=== PATIENT | male | born 1975 | race Caucasian/White ===

== ENCOUNTER 2016-11-27 18:27 | Emergency (ER) | payer MEDICAID ==
[2016-11-27 18:33] VITALS: BP 172/96; PULSE 112; RESP 19; TEMP 98.3; O2SAT 98
--- NOTE | 2016-11-27 20:31 | C.PDOC ---
History Of Present Illness 41 year old male who presents to the ER with a complaint of chronic right foot pain. Patient states he had a fracture on the same foot for which he needed at [facility]; he reports seeing a rope walker who could not find any specific abnormalities. Patient note he has been using old crutches to get around due to the pain; denies recent injury, trauma, weakness, or numbness. Time Seen by Provider: 11/27/16 18:56 Chief Complaint (Nursing): Lower Extremity Problem/Injury History Per: Patient History/Exam Limitations: no limitations Onset/Duration Of Symptoms: Hrs Current Symptoms Are (Timing): Still Present Recent travel outside of the [place]: No - Ankle/Foot Currently Unable To: Bear Weight Past Medical History Reviewed: Historical Data, Nursing Documentation, Vital Signs Vital Signs: Last Vital Signs Temp 98.3 F 11/27/16 18:30 Pulse 112 H 11/27/16 18:30 Resp 19 11/27/16 18:30 BP 172/96 H 11/27/16 18:30 Pulse Ox 98 11/27/16 21:18 - Medical History PMH: Diabetes, HTN, Rheumatoid Arthritis Surgical History: No Surg Hx Family History: States: Unknown Family Hx - Social History Hx Tobacco Use: No Hx Alcohol Use: No Hx Substance Use: No - Immunization History Hx Tetanus Toxoid Vaccination: Yes Hx Influenza Vaccination: Yes Hx Pneumococcal Vaccination: Yes Review Of Systems Musculoskeletal: Positive for: Foot Pain Neurological: Negative for: Weakness, Numbness Physical Exam - Physical Exam Appears: Non-toxic, No Acute Distress Skin: Normal Color, Warm, Dry Head: Atraumatic, Normacephalic Oral Mucosa: Moist Extremity: Normal ROM (x4 ), No Swelling, No Other (Erythema, Wounds) Pulses: Left Dorsalis Pedis: Normal, Right Dorsalis Pedis: Normal Neurological/Psych: Oriented x3, Normal Speech, Normal Cognition ED Course And Treatment O2 Sat by Pulse Oximetry: 98 (Room air) Pulse Ox Interpretation: Normal - Other Rad Right foot x-ray X-Ray: Interpreted by Me, Viewed By Me Interpretation: No acute fractures or dislocations. Progress Note: Right foot x-ray ordered and was found to be negative. Patient given referral for rope walker and discharged home. Disposition - Disposition Referrals: Clint Jon DPM [Staff Provider] - Disposition: HOME/ ROUTINE Disposition Time: 21:17 Condition: STABLE Additional Instructions: Follow up with Lead Accountant within 1-2 days. Return to ED if feel worse. Prescriptions: oxyCODONE/Acetaminophen [Percocet 5/325 mg Tab] 1 tab PO QID PRN #20 tab PRN Reason: Pain Instructions: Tenosynovitis (ED) - Clinical Impression Clinical Impression: Foot pain - Scribe Statement The provider has reviewed the documentation as recorded by the Ghislaineibkoby Davila All medical record entries made by the Radha were at my direction and personally dictated by me. I have reviewed the chart and agree that the record accurately reflects my personal performance of the history, physical exam, medical decision making, and the department course for this patient. I have also personally directed, reviewed, and agree with the discharge instructions and disposition.
--- NOTE | 2016-11-28 09:16 | RAD ---
PROCEDURE: Right foot 11/27/2016. Three views right foot performed. HISTORY: Pain and swelling. COMPARISON: No prior FINDINGS: [facility] changes distal right tibia and fibula. Sideplate is attached to the distal fibula by multiple threaded screws. Two compression screws traverse the medial malleolus. No acute displaced fracture nor dislocation. The osseous structures otherwise appear grossly intact. There is hammertoe deformity 2nd digit with slight lateral subluxation of the distal phalanx Degenerative changes of the tibiotalar articulation with prominent anterior smaller posterior osteophyte formation arising from the distal tibia. Small posterior and not very tiny plantar and surface calcaneal enthesophytes are present. Mild diffuse soft tissue swelling nonspecific. Vascular calcifications are present. . Impression: No acute fractures. [facility] changes distal right tibia and fibula as described. Degenerative changes tibiotalar articulation. See above discussion for additional findings and details.
== END 2016-11-27 21:26 | disposition home or self-care (01) ==
LOC: C.ER 18:27
DX: M79.671 Pain in right foot (principal)

== ENCOUNTER 2017-06-13 12:01 | Emergency (ER) | payer MEDICAID ==
[2017-06-13 12:33] VITALS: RESP 18
--- NOTE | 2017-06-13 16:04 | C.PDOC ---
History Of Present Illness 42 y/o male presents to the ER complaining of a headache and neck pain which began after he slipped and fell today. Patient states that he hit the back of his head and became dazed for a few seconds. Patient states that he has more pain in the right side of his neck compared to the left side. Patient denies LOC , weakness, numbness, and other complaints. - HPI Time Seen by Provider: 06/13/17 15:53 Chief Complaint (Nursing): Trauma History Per: Patient History/Exam Limitations: no limitations Onset/Duration Of Symptoms: Hrs Severity: Moderate Past Medical History Reviewed: Historical Data, Nursing Documentation, Vital Signs Vital Signs: Last Vital Signs Temp 98.3 F 06/13/17 12:29 Pulse 96 H 06/13/17 12:29 Resp 18 06/13/17 12:29 BP 164/96 H 06/13/17 12:29 Pulse Ox 100 06/13/17 16:18 - Medical History PMH: Diabetes, HTN, Rheumatoid Arthritis Denies: Chronic Kidney Disease Other Surgeries: Hx of surgeries Family History: States: No Known Family Hx - Social History Hx Tobacco Use: No Hx Alcohol Use: No Hx Substance Use: No - Immunization History Hx Tetanus Toxoid Vaccination: No Hx Influenza Vaccination: Yes Hx Pneumococcal Vaccination: No Review Of Systems Except As Marked, All Systems Reviewed And Found Negative. Musculoskeletal: Positive for: Neck Pain Neurological: Positive for: Headache. Negative for: Weakness, Numbness Physical Exam - Physical Exam Appears: Non-toxic, No Acute Distress, Other (in pain) Skin: Normal Color, Warm Head: Atraumatic, Normacephalic Eye(s): bilateral: Normal Inspection Nose: Normal Oral Mucosa: Moist Neck: Decreased ROM (decreased ROM, especially to the right side), Supple Chest: Symmetrical Extremity: Normal ROM Neurological/Psych: Oriented x3, Normal Speech, Normal Motor, Normal Sensation ED Course And Treatment O2 Sat by Pulse Oximetry: 100 (RA) Pulse Ox Interpretation: Normal Medical Decision Making Medical Decision Making: Impression: Neck Pain Plan: --CT- Head --CT- Cervical Spine --Flexeril 10 mg PO --Motrin 600 mg PO --Tylenol 975 mg PO Disposition Counseled Patient/Family Regarding: Studies Performed, Diagnosis, Need For Followup, Rx Given - Disposition Referrals: [facility] [Outside] Disposition: HOME/ ROUTINE Disposition Time: 17:15 Condition: IMPROVED Prescriptions: Cyclobenzaprine [Cyclobenzaprine HCl] 10 mg PO BID #12 tab Ibuprofen [Motrin] 600 mg PO TID #15 tab Instructions: Cervical Strain (DC) Forms: [facility] (N[place]ien), General Discharge Instructions, Work Excuse - POA Present On Arrival: Falls Or Trauma - Clinical Impression Clinical Impression: Muscle strain, Whiplash - Scribe Statement The provider has reviewed the documentation as recorded by the Radha Fuller Provider Attestation: All medical record entries made by the Radha were at my direction and personally dictated by me. I have reviewed the chart and agree that the record accurately reflects my personal performance of the history, physical exam, medical decision making, and the department course for this patient. I have also personally directed, reviewed, and agree with the discharge instructions and disposition.
--- NOTE | 2017-06-13 16:45 | CT ---
PROCEDURE: CT HEAD WITHOUT CONTRAST. HISTORY: fall, head trauma COMPARISON: None available. TECHNIQUE: Axial computed tomography images were obtained through the head/brain without intravenous contrast. Radiation dose: Total exam DLP = 881.09 mGy-cm. This CT exam was performed using one or more of the following dose reduction techniques: Automated exposure control, adjustment of the mA and/or kV according to patient size, and/or use of iterative reconstruction technique. FINDINGS: HEMORRHAGE: No intracranial hemorrhage. BRAIN: No mass effect or edema. There is calcification along the left side of the anterior falx cerebrum. This may represent near calcification or a small calcified meningioma. VENTRICLES: Unremarkable. No hydrocephalus. CALVARIUM: Unremarkable. PARANASAL SINUSES: Minimal chronic left maxillary sinusitis. MASTOID AIR CELLS: Unremarkable as visualized. No inflammatory changes. OTHER FINDINGS: None. IMPRESSION: No intracranial mass, hemorrhage or evidence of acute infarct. Anterior falx calcification versus calcified meningioma. Otherwise unremarkable.
--- NOTE | 2017-06-13 16:52 | CT ---
PROCEDURE: CT Cervical Spine without contrast HISTORY: <fall> COMPARISON: None available. TECHNIQUE: Axial computed tomography images were obtained of the cervical spine without the use of intravenous contrast. Coronal and sagittal reformatted images were created and reviewed. Radiation dose: Total exam DLP = 516.76 mGy-cm. This CT exam was performed using one or more of the following dose reduction techniques: Automated exposure control, adjustment of the mA and/or kV according to patient size, and/or use of iterative reconstruction technique. FINDINGS: VERTEBRAE: The vertebral bodies are maintained in height. Normal alignment is maintained. There is straightening of the normal lordotic curvature indicating possible muscular spasm. DISCS/SPINAL CANAL/NEURAL FORAMINA: There is narrowing of the C5-6 and C6-7 intervertebral disc spaces. There are large osteophytes seen along the dorsal aspect of the C 5 vertebra and about the C6-7 intervertebral disc space. These result in central spinal stenosis. Discs heights are grossly preserved. PARASPINAL SOFT TISSUES: Unremarkable. OTHER FINDINGS: None. IMPRESSION: No fracture/ dislocation. Possible muscular spasm. Degenerative disc disease C5-6 and C6-7. Osteophytes midline lower cervical spine resulting central spinal stenosis.
[2017-06-13 17:30] VITALS: BP 149/97; PULSE 91; TEMP 98.1; O2SAT 97
== END 2017-06-13 17:31 | disposition home or self-care (01) ==
LOC: C.ER 12:01
DX: S13.4XXA Sprain of ligaments of cervical spine, initial encounter (principal); W01.0XXA Fall on same level from slipping, tripping and stumbling without subsequent striking against object, initial encounter; Y92.9 Unspecified place or not applicable

== ENCOUNTER 2017-06-25 14:56 | Emergency (ER) | payer MEDICAID ==
[2017-06-25 15:38] VITALS: BP 154/109; PULSE 96; RESP 20; TEMP 97.6; O2SAT 100
--- NOTE | 2017-06-25 15:50 | C.PDOC ---
History Of Present Illness 42 y/o M p/w R sided neck pain x 12 days. Patient had slip and fall and was here in this ED on that day and had CT cervical spine consistent with muscle spasm and no fracture. Patient states he continues to have neck pain in the same location, not improving. He states the ibuprofen does not help so he stopped taking it and Flexeril did not help either. Denies pulsatile mass, numbness, or weakness. Time Seen by Provider: 06/25/17 15:34 Chief Complaint (Nursing): Back Pain Past Medical History Vital Signs: Last Vital Signs Temp 97.6 F 06/25/17 15:15 Pulse 96 H 06/25/17 15:15 Resp 20 06/25/17 15:15 BP 154/109 H 06/25/17 15:15 Pulse Ox 100 06/25/17 15:15 - Medical History PMH: Diabetes, HTN, Hypercholesterolemia, Rheumatoid Arthritis Denies: Chronic Kidney Disease Family History: States: Unknown Family Hx - Social History Hx Tobacco Use: No Hx Alcohol Use: No Hx Substance Use: No - Immunization History Hx Tetanus Toxoid Vaccination: No Hx Influenza Vaccination: Yes Hx Pneumococcal Vaccination: No Review Of Systems Except As Marked, All Systems Reviewed And Found Negative. Constitutional: Negative for: Fever Eyes: Negative for: Vision Change Physical Exam - Physical Exam Additional Physical Exam Comments: Gen: Holding head straight Head: NC Eyes: PERRL Neck: No midline tenderness. Limited ROM due to pain. No bruit. No pulsatile mass. ED Course And Treatment O2 Sat by Pulse Oximetry: 100 Medical Decision Making Medical Decision Making: Will add Valium and advised continue ibuprofen, f/u Dr. Monterroso. Advised on risk of this medication use. Disposition - Disposition Referrals: Frieda Monterroso MD [Medical Doctor] - Disposition: HOME/ ROUTINE Disposition Time: 15:50 Condition: STABLE Prescriptions: diaZEpam [Valium] 5 mg PO Q8H #12 tab Instructions: Torticollis, Adult - Clinical Impression Clinical Impression: Neck muscle spasm
== END 2017-06-25 16:09 | disposition home or self-care (01) ==
LOC: C.ER 14:56
DX: M62.838 Other muscle spasm (principal)

== ENCOUNTER 2017-09-12 20:24 | Inpatient (IN) | payer MEDICAID ==
[2017-09-12 20:57] VITALS: RESP 20
[2017-09-12 22:12] LABS: SQUAMOUS EPITHIAL 1 /hpf (0-5); URINE BILIRUBIN NEGATIVE (NEGATIVE); URINE BLOOD NEGATIVE (NEGATIVE); URINE CLARITY Clear (Clear); URINE COLOR Straw (YELLOW); URINE GLUCOSE (UA) NORMAL (Normal); URINE LEUKOCYTE ESTERASE NEG Leu/uL (Negative); URINE PROTEIN 3+ mg/dL (NEGATIVE); URINE UROBILINOGEN NORMAL mg/dL (0.2-1.0)
[2017-09-12] MEDS ORDERED: Sodium Chloride 0.9% 1,000 ML IV ONE (22:23)
[2017-09-12 22:35] LABS: BASO # 0.1 K/uL (0.0-0.2); BASO % 0.7 % (0.0-2.0); EOS # 0.2 K/uL (0.0-0.7); EOS % 1.4 % (0.0-4.0); LYMPH # 3.2 K/uL (1.0-4.3); MEAN CORPUSCULAR HEMOGLOBIN 31.2 pg (27.0-31.0); MEAN CORPUSCULAR HGB CONC 34.6 g/dL (33.0-37.0); MEAN PLATELET VOLUME 9.8 fL (7.2-11.7); MONO # 0.7 K/uL (0.0-0.8); MONO % 5.7 % (0.0-10.0); NEUT % 68.2 % (50.0-75.0); NRBC % 0.1 % (0.0-2.0); RBC 5.45 Mil/uL (4.40-5.90); RED CELL DISTRIBUTION WIDTH 14.1 % (11.5-14.5); WHITE BLOOD COUNT 13.2 K/uL (4.8-10.8)
[2017-09-12 22:58] LABS: ALBUMIN 3.9 g/dL (3.5-5.0)
[2017-09-12] MEDS ORDERED: Iohexol 240 (50 ml) PO ONE ×2 (23:06→23:07)
[2017-09-12] MEDS ORDERED: Morphine 4 MG/ML VIAL IV ONE (23:07)
[2017-09-12] MEDS ORDERED: Lactated Ringer's 1,000 ML IV ONE (23:10)
--- NOTE | 2017-09-12 23:19 | C.PDOC ---
Time Seen by Provider: 09/12/17 23:01 Chief Complaint (Nursing): Abdominal Pain Past Medical History Vital Signs: Last Vital Signs Temp 97.8 F 09/12/17 20:54 Pulse 98 H 09/12/17 22:35 Resp 20 09/12/17 22:35 BP 101/68 09/12/17 22:35 Pulse Ox 99 09/12/17 23:48 - Medical History PMH: Diabetes, HTN, Hypercholesterolemia, Rheumatoid Arthritis Denies: Chronic Kidney Disease Family History: States: Unknown Family Hx - Social History Hx Tobacco Use: No Hx Alcohol Use: No Hx Substance Use: No - Immunization History Hx Tetanus Toxoid Vaccination: No Hx Influenza Vaccination: Yes Hx Pneumococcal Vaccination: No ED Course And Treatment - Laboratory Results Result Diagrams: 09/12/17 22:30 09/12/17 22:37 O2 Sat by Pulse Oximetry: 99 Medical Decision Making Medical Decision Making: Patient found to have acute pancreatitis. Orders: * Abd/Pelvis CT PO Contrast * Gastroenterology Consult * Ombipaque 50 ml PO x2 * IV Fluids * Zofran 4 mg IVP * Abdominal Ultrasound Dr. Rea for admission. Disposition - Disposition
[2017-09-12] MEDS ORDERED: Morphine 4 MG/ML VIAL ONE (23:29)
[2017-09-12] MEDS ORDERED: Iohexol 240 (50 ml) ONE (23:29)
--- NOTE | 2017-09-13 02:46 | US ---
EXAM: US Abdomen Complete CLINICAL HISTORY: 42 years old, male; Pain; Abdominal pain; Additional info: Abd pain TECHNIQUE: Real-time ultrasound of the abdomen (complete) with image documentation. COMPARISON: US - RIGHT UPPER QUADRANT 2015-06-05 20:51 FINDINGS: Liver: Enlarged, 20.3 cm. Fatty infiltration. No mass. No intrahepatic ductal dilatation. Gallbladder: No gallstones. No wall thickening. No pericholecystic fluid. No sonographic Pacheco's sign. Common bile duct: No dilatation. No stones. Pancreas: Obscured by overlying bowel gas. Kidneys: Increased in echogenicity. 1.6 cm right renal cyst. 0.9 cm left renal cyst. No calculi. Right extrarenal pelvis. No hydronephrosis. Spleen: No splenomegaly. Aorta: Unremarkable. No aneurysm. Inferior vena cava: Unremarkable. Free fluid: No significant free fluid. IMPRESSION: 1. Echogenic kidneys suggesting medical renal disease. Clinical correlation is needed. 2. Hepatic steatosis. 3. Incidental/non-acute findings are described above.
--- NOTE | 2017-09-13 02:55 | CT ---
EXAM: CT Abdomen and Pelvis With Intravenous Contrast CLINICAL HISTORY: 42 years old, male; Pain; Abdominal pain and other: Pancreatitis; Patient HX: 07-07-15 images sent; Additional info: Abd pain/ pancreatitis TECHNIQUE: Axial computed tomography images of the abdomen and pelvis with intravenous contrast. All CT scans at this facility use one or more dose reduction techniques, viz.: automated exposure control; ma/kV adjustment per patient size (including targeted exams where dose is matched to indication; i.e. head); or iterative reconstruction technique. Coronal and sagittal reformatted images were created and reviewed. CONTRAST: 240 mL of oral administered intravenously. COMPARISON: CT - ABD PELVIS W/O PO OR IV CONT 2015-07-07 03:56 FINDINGS: Limitations: Lack of intravenous contrast. Lung bases: No acute findings. Heart: Mild coronary artery calcifications. Mediastinum: Probable small hiatal hernia. ABDOMEN: Liver: Fatty infiltration. Punctate calcification. Gallbladder and bile ducts: No calcified stones. No ductal dilation. Pancreas: Prominent head of pancreas, 4.6 cm in anterior posterior dimension, similar to previous examination. No definite peripancreatic stranding. No ductal dilation. No discrete peripancreatic collection. Spleen: No splenomegaly. Adrenals: Subcentimeter nodule within left adrenal gland, stable. Kidneys and ureters: Probable 1.5 cm RIGHT renal cyst. No renal calculi. No hydronephrosis. Stomach and bowel: No definite mural thickening. No obstruction. PELVIS: Appendix: Normal caliber. No inflammation. Bladder: Unremarkable. Reproductive: Unremarkable as visualized. ABDOMEN and PELVIS: Intraperitoneal space: No significant fluid collection. No free air. Bones/joints: Degenerative changes of spine. No acute fracture. Soft tissues: Mild diffuse stranding within subcutaneous tissues. Vasculature: Minimal atherosclerotic disease. No aneurysm. Lymph nodes: No pathologically enlarged lymph nodes. IMPRESSION: 1. Prominent head of pancreas. Correlate with amylase/lipase levels. Suggest MRI to evaluate for underlying pathology. 2. Incidental/non-acute findings are described above.
[2017-09-13] MEDS: Sodium Chloride 0.9% 1,000 ML IV SCH ×2 (04:05→13:21)
[2017-09-13] MEDS: (Novolog) Insulin Aspart, Recombinant 100 u/ml 10 ml vial SC SCH ×3 (08:33→17:12)
--- NOTE | 2017-09-13 08:50 | CP.PCM.CON ---
<Shawn Zaldivar - Last Filed: 09/13/17 09:25> History of Present Illness - History of Present Illness History of Present Illness: PGY 4 Initial GI Consult Brooks Mcmahon is a 42M w/ hx of Diabetes, HTN, Hypercholesterolemia, Rheumatoid Arthritis who presents to the ER with complaints of abd pain. Pt states that the pain is located in the epigastric area. He notes that it started a few days ago. He denies any ETOH use or smoking. He notes recent start of chlorthalidone by his supervisor [employer] for his HTN. He notes resolution of his symptoms in the AM. He tolerated clear liquid diet and wants a more substantial diet. He recieved IV fluids upon arrival. His CT abd revealed prominent pancreatic head. he has had prior MRCP, but no dedicated pancreatic imaging. Denies any prior EGD or colonoscopy. PMhx: Diabetes, HTN, Hypercholesterolemia, Rheumatoid Arthritis PShx: Denies Social hx: denies any smokign, ETOH, or illicit drug use Family hx: reviewed; denies any GI related malignancy Endo Hx: none ROS: 12 point ROS conducted, neg other than above Past Patient History - Past Medical History & Family History Past Medical History?: Yes - Past Social History Smoking Status: Never Smoked - CARDIAC Hx Cardiac Disorders: Yes Hx Hypercholesterolemia: Yes Hx Hypertension: Yes - PULMONARY Hx Respiratory Disorders: No - NEUROLOGICAL Hx Neurological Disorder: No - HEENT Hx HEENT Problems: No - RENAL Hx Chronic Kidney Disease: No - ENDOCRINE/METABOLIC Hx Endocrine Disorders: Yes Hx Diabetes Mellitus Type 2: Yes - HEMATOLOGICAL/ONCOLOGICAL Hx Blood Disorders: No - INTEGUMENTARY Hx Dermatological Problems: No - MUSCULOSKELETAL/RHEUMATOLOGICAL Hx Musculoskeletal Disorders: Yes Hx Falls: No Hx Rheumatoid Arthritis: Yes - GASTROINTESTINAL Hx Gastrointestinal Disorders: No - GENITOURINARY/GYNECOLOGICAL Hx Genitourinary Disorders: No - PSYCHIATRIC Hx Psychophysiologic Disorder: No Hx Substance Use: No - SURGICAL HISTORY Hx Surgeries: Yes 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) Hx Orthopedic Surgery: Yes (Right ankle) - ANESTHESIA Hx Anesthesia: Yes Hx Anesthesia Reactions: No Meds Allergies/Adverse Reactions: Allergies Allergy/AdvReac Type Severity Reaction Status Date / Time No Known Allergies Allergy Verified 06/13/17 12:33 - Medications Medications: Current Medications Heparin Sodium (Porcine) (Heparin) 5,000 units SC Q12 [facility] Sodium Chloride (Sodium Chloride 0.9%) 1,000 mls @ 100 mls/hr IV .Q10H [facility] Last Admin: 09/13/17 04:05 Dose: 100 mls/hr Insulin Aspart (Novolog) 0 unit SC ACHS [facility] PRN Reason: Protocol Last Admin: 09/13/17 08:33 Dose: Not Given Ketorolac Tromethamine (Toradol) 15 mg IVP Q6 PRN PRN Reason: Pain, moderate (4-7) Ondansetron HCl (Zofran Inj) 4 mg IVP Q6H PRN PRN Reason: Nausea/Vomiting Pantoprazole Sodium (Protonix Inj) 40 mg IVP DAILY [facility] Physical Exam - Constitutional Appears: Well, No Acute Distress - Head Exam Head Exam: ATRAUMATIC, NORMOCEPHALIC - Eye Exam Eye Exam: Normal appearance - ENT Exam ENT Exam: Mucous Membranes Moist, Normal Exam - Neck Exam Neck exam: Positive for: Normal Inspection - Respiratory Exam Respiratory Exam: Clear to Auscultation Bilateral, NORMAL BREATHING PATTERN. absent: Chest Wall Tenderness, Decreased Breath Sounds, Rales, Rhonchi, Wheezes , Respiratory Distress - Cardiovascular Exam Cardiovascular Exam: REGULAR RHYTHM, +S1, +S2 - GI/Abdominal Exam GI & Abdominal Exam: Normal Bowel Sounds, Soft. absent: Diminished Bowel Sounds , Distended, Firm, Guarding, Hernia, Rebound, Rigid, Tenderness - Extremities Exam Extremities exam: Negative for: joint swelling, pedal edema - Back Exam Back exam: NORMAL INSPECTION - Neurological Exam Neurological exam: Alert, Oriented x3 - Psychiatric Exam Psychiatric exam: Normal Affect, Normal Mood - Skin Skin Exam: Dry, Intact, Normal Color, Warm Results - Vital Signs Recent Vital Signs: Last Vital Signs Temp 97.6 F 09/13/17 08:41 Pulse 80 09/13/17 08:41 Resp 20 09/13/17 08:41 BP 150/88 09/13/17 08:41 Pulse Ox 97 09/13/17 08:41 - Labs Result Diagrams: 09/12/17 22:30 09/12/17 22:37 Labs: Laboratory Results - last 24 hr 09/12/17 09/12/17 09/12/17 22:04 22:30 22:37 WBC 13.2 H RBC 5.45 Hgb 17.0 D Hct 49.0 MCV 90.0 MCH 31.2 H MCHC 34.6 RDW 14.1 Plt Count 182 MPV 9.8 Neut % (Auto) 68.2 Lymph % (Auto) 24.0 [place] % (Auto) 5.7 Eos % (Auto) 1.4 Baso % (Auto) 0.7 Neut # (Auto) 9.0 H Lymph # (Auto) 3.2 [place] # (Auto) 0.7 Eos # (Auto) 0.2 Baso # (Auto) 0.1 Sodium 142 Potassium 4.0 Chloride 101 Carbon Dioxide 28 Anion Gap 17 BUN 31 H Creatinine 2.2 H Est GFR ( Amer) 40 Est GFR (Non-Af Amer) 33 POC Glucose (mg/dL) Random Glucose 121 H Calcium 9.0 Total Bilirubin 0.5 AST 44 ALT 39 Alkaline Phosphatase 70 Total Protein 7.9 Albumin 3.9 Globulin 4.0 H Albumin/Globulin Ratio 1.0 Lipase 1774 H Urine Color Straw Urine Clarity Clear Urine pH 6.0 Ur Specific [place] 1.012 Urine Protein 3+ H Urine Glucose (UA) Normal Urine Ketones Negative Urine Blood Negative Urine Nitrate Negative Urine Bilirubin Negative Urine Urobilinogen Normal Ur Leukocyte Esterase Neg Urine WBC (Auto) 2 Urine RBC (Auto) < 1 Ur Squamous Epith Cells 1 09/13/17 07:15 WBC RBC Hgb Hct MCV MCH MCHC RDW Plt Count MPV Neut % (Auto) Lymph % (Auto) [place] % (Auto) Eos % (Auto) Baso % (Auto) Neut # (Auto) Lymph # (Auto) [place] # (Auto) Eos # (Auto) Baso # (Auto) Sodium Potassium Chloride Carbon Dioxide Anion Gap BUN Creatinine Est GFR ( Amer) Est GFR (Non-Af Amer) POC Glucose (mg/dL) 85 Random Glucose Calcium Total Bilirubin AST ALT Alkaline Phosphatase Total Protein Albumin Globulin Albumin/Globulin Ratio Lipase Urine Color Urine Clarity Urine pH Ur Specific [place] Urine Protein Urine Glucose (UA) Urine Ketones Urine Blood Urine Nitrate Urine Bilirubin Urine Urobilinogen Ur Leukocyte Esterase Urine WBC (Auto) Urine RBC (Auto) Ur Squamous Epith Cells Assessment & Plan - Assessment and Plan (Free Text) Assessment: delroy Mcmahon is a 42M w/ hx of Diabetes, HTN, Hypercholesterolemia, Rheumatoid Arthritis who presents to the ER with complaints of abd pain. He is likely to have pancreatitis 2/2 meeting 2 out 3 criteria of abd pain with 2-3x normal upper limit of lipase Acute Pancreatitis, etiology unknown; DDx: drug induced: thiazide, r/o autoimmune, TG Prominent Pancreatic head; cannot eval with pancreatic Ct protocol due to CKD ROBERTA on CKD Plan: -start on low fat diet -if able to tolerate meal, okay to d/c from GI standpoint -recommend follow-up with Dr. Vallejo for oupt EUS to eval pancreatic head -pain management as per primary team -encourage PO fluid intake -recommend TG levels and IGG4 -will sign off D/W Dr. Fung <Nahum Fung Y - Last Filed: 09/13/17 09:37> Meds - Medications Medications: Current Medications Heparin Sodium (Porcine) (Heparin) 5,000 units SC Q12 [facility] Sodium Chloride (Sodium Chloride 0.9%) 1,000 mls @ 100 mls/hr IV .Q10H [facility] Last Admin: 09/13/17 04:05 Dose: 100 mls/hr Insulin Aspart (Novolog) 0 unit SC ACHS [facility] PRN Reason: Protocol Last Admin: 09/13/17 08:33 Dose: Not Given Ketorolac Tromethamine (Toradol) 15 mg IVP Q6 PRN PRN Reason: Pain, moderate (4-7) Ondansetron HCl (Zofran Inj) 4 mg IVP Q6H PRN PRN Reason: Nausea/Vomiting Pantoprazole Sodium (Protonix Inj) 40 mg IVP DAILY [facility] Results - Vital Signs Recent Vital Signs: Last Vital Signs Temp 97.6 F 09/13/17 08:41 Pulse 80 09/13/17 08:41 Resp 20 09/13/17 08:41 BP 150/88 09/13/17 08:41 Pulse Ox 97 09/13/17 08:41 - Labs Result Diagrams: 09/12/17 22:30 09/12/17 22:37 Labs: Laboratory Results - last 24 hr 09/12/17 09/12/17 09/12/17 22:04 22:30 22:37 WBC 13.2 H RBC 5.45 Hgb 17.0 D Hct 49.0 MCV 90.0 MCH 31.2 H MCHC 34.6 RDW 14.1 Plt Count 182 MPV 9.8 Neut % (Auto) 68.2 Lymph % (Auto) 24.0 [place] % (Auto) 5.7 Eos % (Auto) 1.4 Baso % (Auto) 0.7 Neut # (Auto) 9.0 H Lymph # (Auto) 3.2 [place] # (Auto) 0.7 Eos # (Auto) 0.2 Baso # (Auto) 0.1 Sodium 142 Potassium 4.0 Chloride 101 Carbon Dioxide 28 Anion Gap 17 BUN 31 H Creatinine 2.2 H Est GFR ( Amer) 40 Est GFR (Non-Af Amer) 33 POC Glucose (mg/dL) Random Glucose 121 H Calcium 9.0 Total Bilirubin 0.5 AST 44 ALT 39 Alkaline Phosphatase 70 Total Protein 7.9 Albumin 3.9 Globulin 4.0 H Albumin/Globulin Ratio 1.0 Lipase 1774 H Urine Color Straw Urine Clarity Clear Urine pH 6.0 Ur Specific [place] 1.012 Urine Protein 3+ H Urine Glucose (UA) Normal Urine Ketones Negative Urine Blood Negative Urine Nitrate Negative Urine Bilirubin Negative Urine Urobilinogen Normal Ur Leukocyte Esterase Neg Urine WBC (Auto) 2 Urine RBC (Auto) < 1 Ur Squamous Epith Cells 1 09/13/17 07:15 WBC RBC Hgb Hct MCV MCH MCHC RDW Plt Count MPV Neut % (Auto) Lymph % (Auto) [place] % (Auto) Eos % (Auto) Baso % (Auto) Neut # (Auto) Lymph # (Auto) [place] # (Auto) Eos # (Auto) Baso # (Auto) Sodium Potassium Chloride Carbon Dioxide Anion Gap BUN Creatinine Est GFR ( Amer) Est GFR (Non-Af Amer) POC Glucose (mg/dL) 85 Random Glucose Calcium Total Bilirubin AST ALT Alkaline Phosphatase Total Protein Albumin Globulin Albumin/Globulin Ratio Lipase Urine Color Urine Clarity Urine pH Ur Specific [place] Urine Protein Urine Glucose (UA) Urine Ketones Urine Blood Urine Nitrate Urine Bilirubin Urine Urobilinogen Ur Leukocyte Esterase Urine WBC (Auto) Urine RBC (Auto) Ur Squamous Epith Cells Attending/Attestation - Attestation I have personally seen and examined this patient.: Yes I have fully participated in the care of the patient.: Yes I have reviewed all pertinent clinical information: Yes Notes (Text): 09/13/17 09:31 I have seen and examined patient with GI fellow. Agree with above documentation with the following additions. In brief, this is a 42 year old male with history of obesity (BMI 38), HTN, CKD, DM who presents to hospital with complaint of abdominal pain. He describes sudden onset, sharp, epigastric , 8/10 intensity pain radiating to RUQ which started yesterday. Prior to this he was in usual state of health. He denies associated nausea, vomiting, fever/ chills, weight loss, or change in bowel habits. He denies excessive ETOH consumption and reports recent addition of anti-hypertensive medication by his supervisor [employer]. No prior endoscopic evaluation. Review of vitals from today are normal. Additional physical examination: Abdomen: no palpable hepato/splenomegaly HTN Obesity CKD DM Abdominal pain, elevated lipase, acute pancreatitis CT and US imaging reviewed by me showing prominent pancreatic head (similar size noted in MRCP from 2016), normal PD, no evidence of cholelithiasis - Advance diet to low fat as tolerated - Continue with supportive care, pain control - Obtain lipid profile and autoimmune IGG4 testing - Ideally patient would benefit from dedicated pancreatic cross sectional imaging, though unable to perform due to underlying CKD. Will arrange for patient to have EUS of pancreas performed as outpatient with Dr. Vallejo. If patient tolerating PO diet, from GI perspective ok to discharge home with subsequent outpatient follow up. Please reconsult as necessary, thank you. Case discussed with Dr. Rea.
[2017-09-13 11:33] LABS: BASO # 0.1 K/uL (0.0-0.2); BASO % 0.9 % (0.0-2.0); EOS # 0.2 K/uL (0.0-0.7); HEMOGLOBIN 15.7 g/dL (12.0-18.0); LYMPH # 3.7 K/uL (1.0-4.3); LYMPH % 36.2 % (20.0-40.0); MEAN CELL VOLUME 89.8 fL (80.0-94.0); MEAN CORPUSCULAR HEMOGLOBIN 31.5 pg (27.0-31.0); MEAN CORPUSCULAR HGB CONC 35.1 g/dL (33.0-37.0); MEAN PLATELET VOLUME 9.7 fL (7.2-11.7); MONO # 0.6 K/uL (0.0-0.8); MONO % 5.5 % (0.0-10.0); NEUT # 5.7 K/uL (1.8-7.0); NEUT % 55.4 % (50.0-75.0); NRBC % 0.1 % (0.0-2.0); RBC 4.99 Mil/uL (4.40-5.90); RED CELL DISTRIBUTION WIDTH 13.8 % (11.5-14.5); WHITE BLOOD COUNT 10.3 K/uL (4.8-10.8)
[2017-09-13 11:45] LABS: CALCIUM 8.7 mg/dl (8.6-10.4); HDL CHOLESTEROL 25 mg/dL (30-70)
[2017-09-13 11:56] LABS: LDL CHOLESTEROL 87 mg/dL (0-129)
[2017-09-13 15:58] VITALS: BP 135/86; PULSE 84; TEMP 98; O2SAT 95
--- NOTE | 2017-09-13 16:41 | CP.PCM.PN ---
Subjective - Date & Time of Evaluation Date of Evaluation: 09/13/17 Time of Evaluation: 11:00 - Subjective Subjective: Alert, orientedx3, denies abdominal pain or distress. Objective - Vital Signs/Intake and Output Vital Signs (last 24 hours): Temp Pulse Resp BP Pulse Ox 98.0 F 84 20 135/86 95 09/13/17 15:00 09/13/17 15:00 09/13/17 15:00 09/13/17 15:00 09/13/17 15:00 Intake and Output: 09/13/17 09/13/17 06:59 18:59 Intake Total 600 1280 Balance 600 1280 - Medications Medications: Current Medications Amlodipine Besylate (Norvasc) 10 mg PO DAILY [facility] Last Admin: 09/13/17 10:57 Dose: 10 mg Heparin Sodium (Porcine) (Heparin) 5,000 units SC Q12 [facility] Last Admin: 09/13/17 09:39 Dose: 5,000 units Sodium Chloride (Sodium Chloride 0.9%) 1,000 mls @ 100 mls/hr IV .Q10H [facility] Last Admin: 09/13/17 13:21 Dose: Not Given Insulin Aspart (Novolog) 0 unit SC ACHS [facility] PRN Reason: Protocol Last Admin: 09/13/17 11:43 Dose: Not Given Ketorolac Tromethamine (Toradol) 15 mg IVP Q6 PRN PRN Reason: Pain, moderate (4-7) Ondansetron HCl (Zofran Inj) 4 mg IVP Q6H PRN PRN Reason: Nausea/Vomiting Pantoprazole Sodium (Protonix Inj) 40 mg IVP DAILY [facility] Last Admin: 09/13/17 09:39 Dose: 40 mg - Labs Labs: 09/13/17 11:24 09/13/17 11:24 Assessment and Plan - Assessment and Plan (Free Text) Assessment: Patient admitted with abdominal pain, pancreatitis, seen and examined. Alert and orientedx3, denies pain today. Seen by GI and is cleared for discharge. advised to follow up with DR Vallejo in the office. Advised to avoid spicy and fatty foods.Discussed with DR Rea, plan for discharge home today.
== END 2017-09-13 18:44 | disposition home or self-care (01) | DRG 204 ==
LOC: C.ER 20:24 → C.3T 23:12
PROVIDERS: ADMIT Internal Medicine; ATTEND Internal Medicine
DX: K85.90 Acute pancreatitis without necrosis or infection, unspecified (principal); E11.22 Type 2 diabetes mellitus with diabetic chronic kidney disease; I12.9 Hypertensive chronic kidney disease with stage 1 through stage 4 chronic kidney disease, or unspecified chronic kidney disease; N18.9 Chronic kidney disease, unspecified; E78.00 Pure hypercholesterolemia, unspecified; M06.9 Rheumatoid arthritis, unspecified; E66.9 Obesity, unspecified; Z68.38 Body mass index [BMI] 38.0-38.9, adult

== ENCOUNTER 2017-10-31 06:56 | Day surgery (SDC) | payer MEDICAID ==
--- NOTE | 2017-10-31 10:50 | CP.SDSHP ---
Same Day Surgery H & P - History Proposed Procedure: egd eus Pre-Op Diagnosis: abdo pain. h/o pancreatitis - Allergies Allergies: Allergies No Known Allergies Allergy (Verified 09/14/17 21:51) - Physical Exam Vital Signs: Vital Signs 10/31/17 07:14 Temperature 97.8 F Pulse Rate 80 Respiratory 20 Rate Blood Pressure 158/100 H O2 Sat by Pulse 100 Oximetry Mental Status: Alert & Oriented x3 Neuro: WNL Heart: WNL Lungs: WNL GI: WNL - {Optional Preform as Required} Abdomen: WNL - Impression Impression: h/o pancreatitis Pt. Evaluated Today:Candidate for Anesthesia & Procedure: Yes - Date & Time Date: 10/31/17 Time: 10:50 Short Stay Discharge - Short Stay Discharge Admitting Diagnosis/Reason for Visit: OTHER CHRONIC PANCREATITIS Disposition: HOME/ ROUTINE
[2017-10-31] MEDS ORDERED: Propofol 10 mg/ml Inj (20 ML) ONE (10:58)
[2017-10-31] MEDS ORDERED: Midazolam 2 MG/2 ML VIAL ONE (10:58)
[2017-10-31] MEDS ORDERED: Lidocaine Hydrochloride 10 ML INJ ONE (11:00)
[2017-10-31 11:41] VITALS: TEMP 98.6; O2SAT 98
[2017-10-31 13:21] VITALS: BP 129/84; PULSE 88; RESP 16
== END 2017-10-31 12:30 | disposition home or self-care (01) ==
LOC: C.ENDO 06:56
PROVIDERS: ATTEND Internal Medicine
DX: K86.1 Other chronic pancreatitis (principal); K29.70 Gastritis, unspecified, without bleeding
CPT/HCPCS: 43259; 82948; 88305; 88313; 88342; J2250; J2704; J3010

== ENCOUNTER 2018-09-21 18:17 | Inpatient (IN) | payer MEDICAID ==
--- NOTE | 2018-09-21 19:45 | C.PDOC ---
History Of Present Illness Patient presents with increased frequency in urination and abdominal heaviness. Denies fever, chills, nausea, or vomiting. Time Seen by Provider: 09/21/18 19:44 Chief Complaint (Nursing): Male Genitourinary History Per: Patient History/Exam Limitations: no limitations Onset/Duration Of Symptoms: Hrs Current Symptoms Are (Timing): Still Present Severity: Moderate Pain Scale Rating Of: 4 Quality Of Discomfort: Unable To Describe Associated Symptoms: Urinary Symptoms. denies: Fever, Chills, Nausea, Vomiting Alleviating Factors: None (Frequency) Recent travel outside of the [place]: No Past Medical History Reviewed: Historical Data, Nursing Documentation, Vital Signs Vital Signs: Last Vital Signs Temp 98.2 F 09/21/18 18:33 Pulse 105 H 09/21/18 18:33 Resp 18 09/21/18 18:33 BP 166/92 H 09/21/18 18:33 Pulse Ox 99 09/21/18 18:33 Primary Care Provider: Frieda Monterroso - Medical History PMH: Diabetes, HTN, Hypercholesterolemia, Rheumatoid Arthritis Denies: Chronic Kidney Disease Family History: States: No Known Family Hx - Social History Hx Tobacco Use: No Hx Alcohol Use: No Hx Substance Use: No - Immunization History Hx Tetanus Toxoid Vaccination: No Hx Influenza Vaccination: Yes (04/2018) Hx Pneumococcal Vaccination: No Review Of Systems Constitutional: Negative for: Fever, Chills Cardiovascular: Negative for: Chest Pain, Palpitations Respiratory: Negative for: Cough, Shortness of Breath Gastrointestinal: Negative for: Nausea, Vomiting Genitourinary: Positive for: Frequency Neurological: Negative for: Weakness, Numbness Physical Exam - Physical Exam Appears: Non-toxic Skin: Warm, Dry Head: Normacephalic Eye(s): bilateral: Normal Inspection Oral Mucosa: Moist Neck: Supple Chest: Symmetrical, No Tenderness Cardiovascular: Rhythm Regular Respiratory: No Rales, No Rhonchi, No Wheezing Gastrointestinal/Abdominal: Soft, No Tenderness, Distention, No Guarding, No Rebound, Other (Obese, Tympanic to percussion) Back: No CVA Tenderness Extremity: Normal ROM Extremity: Bilateral: Atraumatic Neurological/Psych: Oriented x3 Gait: Steady ED Course And Treatment - Laboratory Results Result Diagrams: 09/21/18 20:40 09/21/18 23:39 ECG: Interpreted By Me, Viewed By Me ECG Rhythm: Sinus Rhythm (110), Nonspecific Changes (lahb,lvh,) O2 Sat by Pulse Oximetry: 99 (Room air) Pulse Ox Interpretation: Normal Progress Note: Blood work and EKG ordered. Protonix, toradol, and IV fluids administered. Disposition Discussed With Dr.: Jose A Zaldivar Comment: accepted the pt on his service and took over the care at 2:58 AM Doctor Will See Patient In The: Hospital Counseled Patient/Family Regarding: Studies Performed, Diagnosis - Disposition Disposition: HOSPITALIZED Disposition Time: 19:44 Condition: FAIR Forms: Baboo (Uruguayan) - POA Present On Arrival: Poor Glycemic Control - Clinical Impression Clinical Impression: Abdominal pain, Renal insufficiency, Enteritis, Prostatitis - Scribe Statement The provider has reviewed the documentation as recorded by the Scribe Hood Davila All medical record entries made by the Scribe were at my direction and personally dictated by me. I have reviewed the chart and agree that the record accurately reflects my personal performance of the history, physical exam, medical decision making, and the department course for this patient. I have also personally directed, reviewed, and agree with the discharge instructions and disposition. Decision To Admit - Pt Status Changed To: Hospital Disposition Of: Observation - . Bed Request Type: Regular Admitting Physician: Jose A Zaldivar Patient Diagnosis: Abdominal pain, Renal insufficiency, Enteritis, Prostatitis
[2018-09-21] MEDS ORDERED: Sodium Chloride 0.9% 1,000 ML IV ONE ×2 (20:04→21:17)
[2018-09-21 20:43] LABS: BASO # 0.2 K/uL (0.0-0.2); BASO % 0.9 % (0.0-2.0); EOS # 0.1 K/uL (0.0-0.7); EOS % 0.4 % (0.0-4.0); HEMOGLOBIN 14.4 g/dL (12.0-18.0); LYMPH # 2.7 K/uL (1.0-4.3); LYMPH % 13.6 % (20.0-40.0); MEAN CELL VOLUME 89.3 fL (80.0-94.0); MEAN CORPUSCULAR HEMOGLOBIN 29.4 pg (27.0-31.0); MEAN PLATELET VOLUME 9.8 fL (7.2-11.7); MONO # 1.1 K/uL (0.0-0.8); MONO % 5.4 % (0.0-10.0); NEUT # 15.6 K/uL (1.8-7.0); NEUT % 79.7 % (50.0-75.0); NRBC % 0.1 % (0.0-2.0); RBC 4.89 Mil/uL (4.40-5.90); RED CELL DISTRIBUTION WIDTH 13.8 % (11.5-14.5); WHITE BLOOD COUNT 19.6 K/uL (4.8-10.8)
[2018-09-21 20:44] LABS: VENOUS BLOOD GAS BASE EXCESS -8.2 mmol/L (0.0-2.0); VENOUS BLOOD GAS PCO2 34 mmHg (40-60); VENOUS BLOOD GAS PO2 32 mm/Hg (30-55); VENOUS BLOOD PH 7.31 (7.32-7.43)
[2018-09-21 20:53] LABS: SQUAMOUS EPITHIAL < 1 /hpf (0-5); URINE BACTERIA FEW (<OCC); URINE BILIRUBIN NEGATIVE (NEGATIVE); URINE BLOOD 1+ (NEGATIVE); URINE CLARITY Hazy (Clear); URINE COLOR Yellow (YELLOW); URINE GLUCOSE (UA) NORMAL (Normal); URINE LEUKOCYTE ESTERASE 2+ Leu/uL (Negative); URINE PROTEIN 2+ mg/dL (NEGATIVE)
[2018-09-21 20:55] LABS: ALB/GLOB RATIO 1.1 (1.0-2.1); ALBUMIN 4.5 g/dL (3.5-5.0); CALCIUM 9.7 mg/dl (8.6-10.4)
[2018-09-22 00:13] LABS: CALCIUM 9.1 mg/dl (8.6-10.4)
[2018-09-22] MEDS ORDERED: Iodixanol 320 MG/ML 100 ML BOTTLE IV ONE (00:48)
[2018-09-22] MEDS ORDERED: Sodium Chloride 0.9% 1,000 ML IV ONE (01:22)
[2018-09-22] MEDS ORDERED: Piperacillin/Tazobact 3.375 gm 100 ML IVPB STA (02:42)
[2018-09-22] MEDS ORDERED: Ciprofloxacin 400mg/200ml D5W 400 MG/200 ML BAG IVPB STA (03:00)
[2018-09-22 03:30] VITALS: RESP 20
[2018-09-22] MEDS ORDERED: Piperacillin/Tazobact 3.375 gm 100 ML IVPB ONE (03:45)
[2018-09-22] MEDS ORDERED: Dextrose 50% SYRINGE Inj (50 ml) IV PRN (08:31)
[2018-09-22] MEDS ORDERED: Glucagon Recombinant 1 mg Inj IM PRN (08:31)
[2018-09-22] MEDS: Sodium Chloride 0.9% 1,000 ML IV SCH ×2 (09:29→21:41)
[2018-09-22] MEDS: Pantoprazole 40 mg EC Tab PO SCH (09:30)
--- NOTE | 2018-09-22 09:54 | CT ---
Date of service: 09/22/2018 PROCEDURE: CT Abdomen and Pelvis with contrast HISTORY: abdominal pain COMPARISON: 09/13/2017 TECHNIQUE: Contrast dose: 100 mL Visipaque 320 Radiation dose: Total exam DLP = 1315.62 mGy-cm. This CT exam was performed using one or more of the following dose reduction techniques: Automated exposure control, adjustment of the mA and/or kV according to patient size, and/or use of iterative reconstruction technique. FINDINGS: LOWER THORAX: Unremarkable. LIVER: Unremarkable. No gross lesion or ductal dilatation. GALLBLADDER AND BILE DUCTS: Unremarkable. PANCREAS: Unremarkable. No gross lesion or ductal dilatation. SPLEEN: Unremarkable. ADRENALS: Unremarkable. No mass. KIDNEYS AND URETERS: Multiple bilateral small rounded low-attenuation renal masses, likely cortical cysts. The largest such mass is in the lower pole right kidney, 1.7 cm. This measures 13 Hounsfield units, consistent with cyst. Smaller masses are limited for evaluation of attenuation due to the small size. VASCULATURE: Unremarkable. No aortic aneurysm. No aortic atherosclerotic calcification or mural plaque present. BOWEL: Sigmoid diverticulosis without evidence of diverticulitis. No bowel obstruction. No other abnormal bowel loops. APPENDIX: Normal appendix. PERITONEUM: Unremarkable. No free fluid. No free air. LYMPH NODES: Unremarkable. No enlarged lymph nodes. BLADDER: Bladder is markedly thick walled. This may be due to cystitis or neoplasm. Chronic bladder outlet obstruction should also be considered. Please correlate with history and urinalysis. REPRODUCTIVE: Normal prostate BONES: No acute fracture. OTHER FINDINGS: None. IMPRESSION: Markedly thick walled urinary bladder. See above. Correlate with history and urinalysis. Sigmoid diverticulosis without evidence of diverticulitis. Multiple small low-attenuation renal masses, likely cysts.
[2018-09-22] MEDS ORDERED: Enoxaparin 40 mg Syringe SC SCH (10:00)
[2018-09-22] MEDS: Piperacill/Tazo 2.25gm in Dex 2.25 GM/50 ML BAG IVPB SCH ×2 (10:44→18:10)
[2018-09-22] MEDS: (Novolog) Insulin Aspart, Recombinant 100 u/ml 10 ml vial SC SCH ×3 (11:48→21:39)
--- NOTE | 2018-09-22 23:08 | CP.PCM.HP ---
Past Patient History - Past Medical History & Family History Past Medical History?: Yes - Past Social History Smoking Status: Never Smoked - CARDIAC Hx Hypercholesterolemia: Yes Hx Hypertension: Yes - PULMONARY Hx Respiratory Disorders: No - NEUROLOGICAL Hx Neurological Disorder: No - HEENT Hx HEENT Problems: Yes (ASTIGMATISM) - RENAL Hx Chronic Kidney Disease: No - ENDOCRINE/METABOLIC Hx Endocrine Disorders: Yes Hx Diabetes Mellitus Type 2: Yes - HEMATOLOGICAL/ONCOLOGICAL Hx Blood Disorders: No - INTEGUMENTARY Hx Dermatological Problems: No - MUSCULOSKELETAL/RHEUMATOLOGICAL Hx Rheumatoid Arthritis: Yes - GASTROINTESTINAL Hx Gastrointestinal Disorders: No - GENITOURINARY/GYNECOLOGICAL Hx Genitourinary Disorders: No - PSYCHIATRIC Hx Substance Use: No - SURGICAL HISTORY Hx Surgeries: Yes 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) Hx Orthopedic Surgery: Yes (Right ankle) - ANESTHESIA Hx Anesthesia: Yes Hx Anesthesia Reactions: No Hx Malignant Hyperthermia: No Meds Allergies/Adverse Reactions: Allergies Allergy/AdvReac Type Severity Reaction Status Date / Time No Known Allergies Allergy Verified 09/21/18 18:36 Physical Exam - Constitutional Appears: Well - Head Exam Head Exam: ATRAUMATIC, NORMAL INSPECTION, NORMOCEPHALIC - Eye Exam Eye Exam: EOMI, Normal appearance, PERRL Pupil Exam: NORMAL ACCOMODATION, PERRL - ENT Exam ENT Exam: Mucous Membranes Moist, Normal Exam - Neck Exam Neck exam: Positive for: Normal Inspection - Respiratory Exam Respiratory Exam: Decreased Breath Sounds - Cardiovascular Exam Cardiovascular Exam: REGULAR RHYTHM, +S1, +S2 - GI/Abdominal Exam GI & Abdominal Exam: Diminished Bowel Sounds, Soft - Rectal Exam Rectal Exam: Deferred - Neurological Exam Neurological exam: Oriented x3 Results - Vital Signs Recent Vital Signs: Last Vital Signs Temp 98.8 F 09/22/18 16:00 Pulse 109 H 09/22/18 16:00 Resp 20 09/22/18 16:00 BP 143/87 09/22/18 16:00 Pulse Ox 96 09/22/18 16:00 - Labs Result Diagrams: 09/21/18 20:40 09/21/18 23:39 Labs: Laboratory Results - last 24 hr 09/21/18 09/22/18 09/22/18 23:39 03:01 07:10 Sodium 135 Potassium 4.5 Chloride 101 Carbon Dioxide 22 Anion Gap 16 BUN 27 H Creatinine 1.9 H Est GFR ( Amer) 47 Est GFR (Non-Af Amer) 39 POC Glucose (mg/dL) 261 H Random Glucose 187 H Hemoglobin A1c 9.3 H Calcium 9.1 09/22/18 09/22/18 09/22/18 11:02 16:03 21:01 Sodium Potassium Chloride Carbon Dioxide Anion Gap BUN Creatinine Est GFR ( Amer) Est GFR (Non-Af Amer) POC Glucose (mg/dL) 286 H 295 H 283 H Random Glucose Hemoglobin A1c Calcium
[2018-09-23] MEDS: Piperacill/Tazo 2.25gm in Dex 2.25 GM/50 ML BAG IVPB SCH ×3 (03:06→18:33)
[2018-09-23] MEDS: Sodium Chloride 0.9% 1,000 ML IV SCH (04:38)
[2018-09-23] MEDS: (Novolog) Insulin Aspart, Recombinant 100 u/ml 10 ml vial SC SCH ×4 (08:22→21:38)
[2018-09-23] MEDS: Pantoprazole 40 mg EC Tab PO SCH (09:01)
[2018-09-23 11:37] LABS: CALCIUM 9.1 mg/dl (8.6-10.4)
--- NOTE | 2018-09-23 12:07 | CP.PCM.CON ---
History of Present Illness - History of Present Illness History of Present Illness: INFECTIOUS DISEASE CONSULT; HPI; 43-YEAR-OLD MALE WITH HISTORY OFF DIABETES MELLITUS, HYPERTENSION, HYPERCHOLESTEROLEMIA, RHEUMATOID ARTHRITIS WHO PRESENTS TODAY WITH INCREASED FREQUENCY AND ABDOMINAL DISCOMFORT. PATIENT DENIES ANY HEMATURIA OR HISTORY OF KIDNEY STONES. PATIENT DENIES ANY FEVER OR CHILLS. PATIENT DENIES ANY PENILE OR URETHRAL DISCHARGE. PATIENT DOES GIVE HISTORY OF PANCREATITIS IN THE PAST. INFECTIOUS DISEASE CONSULT REQUESTED BY PMD FOR ABDOMINAL PAIN AND UROSEPSIS. ON ADMISSION PATIENT ALSO HAD LIPASE OF 959. PATIENT DENIES ANY RECENT HISTORY OF UPPER RESPIRATORY TRACT INFECTION OR TRAVEL. NO HISTORY OFF SICK CONTACTS. PATIENT PRESENTLY ON iv zOSYN 2.25 G EVERY 8 HOURLY. PMH: Diabetes, HTN, Hypercholesterolemia, Rheumatoid Arthritis Denies: Chronic Kidney Disease Family History: States: No Known Family Hx - Social History Hx Tobacco Use: No Hx Alcohol Use: No Hx Substance Use: No - Immunization History Hx Tetanus Toxoid Vaccination: No Hx Influenza Vaccination: Yes (04/2018) Hx Pneumococcal Vaccination: No. ALLERGY; NKA. Review of Systems - Constitutional Constitutional: absent: Chills, Fever - EENT Nose/Mouth/Throat: absent: Nasal Congestion, Mouth Lesions - Cardiovascular Cardiovascular: absent: Chest Pain, Dyspnea, Palpitations - Respiratory Respiratory: absent: Cough - Gastrointestinal Gastrointestinal: Abdominal Pain. absent: Diarrhea, Vomiting (LOWER ABDOMINAL DISCOMFORT.) - Genitourinary Genitourinary: Dysuria, Urinary Frequency. absent: Freq UTI, Hx Renal/Bladder Calculi - Neurological Neurological: absent: Dizziness, Headaches - Hematologic/Lymphatic Hematologic: As Per HPI. absent: Easy Bleeding, Easy Bruising, Lymphadenopathy Past Patient History - Past Medical History & Family History Past Medical History?: Yes - Past Social History Smoking Status: Never Smoked - CARDIAC Hx Hypercholesterolemia: Yes Hx Hypertension: Yes - PULMONARY Hx Respiratory Disorders: No - NEUROLOGICAL Hx Neurological Disorder: No - HEENT Hx HEENT Problems: Yes (ASTIGMATISM) - RENAL Hx Chronic Kidney Disease: No - ENDOCRINE/METABOLIC Hx Endocrine Disorders: Yes Hx Diabetes Mellitus Type 2: Yes - HEMATOLOGICAL/ONCOLOGICAL Hx Blood Disorders: No - INTEGUMENTARY Hx Dermatological Problems: No - MUSCULOSKELETAL/RHEUMATOLOGICAL Hx Rheumatoid Arthritis: Yes - GASTROINTESTINAL Hx Gastrointestinal Disorders: No - GENITOURINARY/GYNECOLOGICAL Hx Genitourinary Disorders: No - PSYCHIATRIC Hx Substance Use: No - SURGICAL HISTORY Hx Surgeries: Yes 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) Hx Orthopedic Surgery: Yes (Right ankle) - ANESTHESIA Hx Anesthesia: Yes Hx Anesthesia Reactions: No Hx Malignant Hyperthermia: No Meds Allergies/Adverse Reactions: Allergies Allergy/AdvReac Type Severity Reaction Status Date / Time No Known Allergies Allergy Verified 09/21/18 18:36 - Medications Medications: Current Medications Acetaminophen (Tylenol 325mg Tab) 650 mg PO Q6 PRN PRN Reason: Fever >100.4 F Last Admin: 09/22/18 23:33 Dose: 650 mg Amlodipine Besylate (Norvasc) 10 mg PO DAILY [facility] Last Admin: 09/23/18 09:01 Dose: 10 mg Dextrose (Dextrose 50% Inj) 0 ml IV STAT PRN; Protocol PRN Reason: Hypoglycemia Protocol Dextrose (Glutose 15) 0 gm PO ONCE PRN; Protocol PRN Reason: Hypoglycemia Protocol Glipizide (Glucotrol) 10 mg PO ACB [facility] Last Admin: 09/23/18 08:23 Dose: 10 mg Glucagon (Glucagen Diagnostic Kit) 0 mg IM STAT PRN; Protocol PRN Reason: Hypoglycemia Protocol Heparin Sodium (Porcine) (Heparin) 5,000 units SC Q12 [facility] Last Admin: 09/23/18 09:01 Dose: 5,000 units Dextrose (Dextrose 5% In Water 1000 Ml) 1,000 mls @ 0 mls/hr IV .Q0M PRN; Protocol PRN Reason: Hypoglycemia Protocol Piperacillin Sod/Tazobactam Sod (Zosyn 2.25 Gm Iv Premix) 2.25 gm in 50 mls @ 100 mls/hr IVPB Q8H [facility]; Protocol Last Admin: 09/23/18 11:45 Dose: 100 mls/hr Sodium Chloride (Sodium Chloride 0.9%) 1,000 mls @ 100 mls/hr IV .Q10H [facility] Last Admin: 09/23/18 04:38 Dose: 100 mls/hr Insulin Aspart (Novolog) 0 unit SC ACHS [facility]; Protocol Last Admin: 09/23/18 11:46 Dose: 3 units Pantoprazole Sodium (Protonix Ec Tab) 40 mg PO DAILY [facility] Last Admin: 09/23/18 09:01 Dose: 40 mg Rosuvastatin Calcium (Crestor) 10 mg PO HS [facility] Last Admin: 09/22/18 21:38 Dose: 10 mg Physical Exam - Constitutional Appears: No Acute Distress - Head Exam Head Exam: NORMAL INSPECTION - Eye Exam Eye Exam: EOMI, PERRL - ENT Exam ENT Exam: Normal Oropharynx - Neck Exam Neck exam: Positive for: Normal Inspection - Respiratory Exam Respiratory Exam: Clear to Auscultation Bilateral, NORMAL BREATHING PATTERN - Cardiovascular Exam Cardiovascular Exam: REGULAR RHYTHM, +S1, +S2 - GI/Abdominal Exam GI & Abdominal Exam: Normal Bowel Sounds, Soft, Tenderness (SUPRAPUBIC) - Extremities Exam Extremities exam: Positive for: pedal pulses present. Negative for: calf tenderness, pedal edema - Neurological Exam Neurological exam: Alert, CN II-XII Intact, Oriented x3, Reflexes Normal - Psychiatric Exam Psychiatric exam: Normal Mood - Skin Skin Exam: Normal Color, Warm Results - Vital Signs Recent Vital Signs: Last Vital Signs Temp 100.2 F H 09/23/18 08:00 Pulse 101 H 09/23/18 08:00 Resp 20 09/23/18 08:00 BP 152/91 H 09/23/18 08:00 Pulse Ox 96 09/23/18 08:00 - Labs Result Diagrams: 09/21/18 20:40 09/23/18 11:19 Labs: Laboratory Results - last 24 hr 09/22/18 09/22/18 09/23/18 16:03 21:01 07:01 Sodium Potassium Chloride Carbon Dioxide Anion Gap BUN Creatinine Est GFR ( Amer) Est GFR (Non-Af Amer) POC Glucose (mg/dL) 295 H 283 H 191 H Random Glucose Lactic Acid Calcium Lipase 09/23/18 09/23/18 09/23/18 11:19 11:19 11:27 Sodium 136 Potassium 4.3 Chloride 101 Carbon Dioxide 25 Anion Gap 14 BUN 25 H Creatinine 2.4 H Est GFR ( Amer) 36 Est GFR (Non-Af Amer) 30 POC Glucose (mg/dL) 234 H Random Glucose 275 H D Lactic Acid 1.0 Calcium 9.1 Lipase 628 H - Imaging and Cardiology CT scan - abdomenand pelvis with IV contrast Status: Report reviewed by me Assessment & Plan (1) Abdominal pain Status: Acute (2) Cystitis Status: Acute (3) Diabetes Status: Acute (4) Hypertension Status: Acute (5) Renal insufficiency Assessment and Plan: 09/23/18 bun 25/CREATININE 2.4. F/U RENAL FUNCTIONS CLOSELY. Status: Acute (6) Pancreatitis Assessment and Plan: PATIENT HAS PREVIOUS HISTORY OF PANCREATITIS. PRESENT LIPASE IS 628 IMPROVING. PATIENT DENIES ALCOHOL ABUSE/OR HISTORY OF GALLSTONES. F/U LIPASE ON tuesday Status: Acute - Assessment and Plan (Free Text) Plan: PLAN; PANCULTURE. F/U LIPASE F/U H/H CONTINUE iv ZOSYN 2.25 iv PIGGYBACK EVERY 8 HOURLY 09/21/16. fOLLOW-UP CULTURES TO ADJUST ANTIBIOTICS. CASE DISCUSSED WITH THE STAFF.
--- NOTE | 2018-09-23 14:16 | CARD ---
APPROVED REPORT Date of service: 09/21/2018 EKG Measurement Heart [id number] <Conclusion> Sinus tachycardia Left anterior fascicular block Left ventricular hypertrophy with QRS widening and repolarization abnormality Abnormal ECG
--- NOTE | 2018-09-23 23:21 | CP.PCM.PN ---
Subjective - Date & Time of Evaluation Date of Evaluation: 09/23/18 - Subjective Subjective: no c/o vomiting, no diarrhea, no fever Objective - Vital Signs/Intake and Output Vital Signs (last 24 hours): Temp Pulse Resp BP Pulse Ox 99.8 F H 104 H 20 138/80 98 09/23/18 16:00 09/23/18 16:00 09/23/18 16:00 09/23/18 16:00 09/23/18 16:00 Intake and Output: 09/23/18 09/24/18 18:59 06:59 Intake Total 750 1200 Balance 750 1200 - Medications Medications: Current Medications Acetaminophen (Tylenol 325mg Tab) 650 mg PO Q6 PRN PRN Reason: Fever >100.4 F Last Admin: 09/22/18 23:33 Dose: 650 mg Amlodipine Besylate (Norvasc) 10 mg PO DAILY [facility] Last Admin: 09/23/18 09:01 Dose: 10 mg Dextrose (Dextrose 50% Inj) 0 ml IV STAT PRN; Protocol PRN Reason: Hypoglycemia Protocol Dextrose (Glutose 15) 0 gm PO ONCE PRN; Protocol PRN Reason: Hypoglycemia Protocol Glipizide (Glucotrol) 10 mg PO ACB [facility] Last Admin: 09/23/18 08:23 Dose: 10 mg Glucagon (Glucagen Diagnostic Kit) 0 mg IM STAT PRN; Protocol PRN Reason: Hypoglycemia Protocol Heparin Sodium (Porcine) (Heparin) 5,000 units SC Q12 [facility] Last Admin: 09/23/18 21:36 Dose: 5,000 units Dextrose (Dextrose 5% In Water 1000 Ml) 1,000 mls @ 0 mls/hr IV .Q0M PRN; Protocol PRN Reason: Hypoglycemia Protocol Piperacillin Sod/Tazobactam Sod (Zosyn 2.25 Gm Iv Premix) 2.25 gm in 50 mls @ 100 mls/hr IVPB Q8H [facility]; Protocol Last Admin: 09/23/18 18:33 Dose: 100 mls/hr Sodium Chloride (Sodium Chloride 0.9%) 1,000 mls @ 100 mls/hr IV .Q10H [facility] Last Admin: 09/23/18 04:38 Dose: 100 mls/hr Insulin Aspart (Novolog) 0 unit SC ACHS [facility]; Protocol Last Admin: 09/23/18 21:38 Dose: Not Given Pantoprazole Sodium (Protonix Ec Tab) 40 mg PO DAILY [facility] Last Admin: 09/23/18 09:01 Dose: 40 mg Rosuvastatin Calcium (Crestor) 10 mg PO HS [facility] Last Admin: 09/23/18 21:36 Dose: 10 mg - Labs Labs: 09/21/18 20:40 09/23/18 11:19 Assessment and Plan (1) Abdominal pain Status: Acute (2) Cystitis Status: Acute (3) Enteritis Status: Acute (4) Prostatitis Status: Acute (5) Renal insufficiency Status: Acute (6) Abdominal discomfort Status: Acute (7) Diabetes Status: Acute (8) Foot pain Status: Acute (9) Hypertension Status: Acute (10) Knee sprain and strain Status: Acute (11) Left against medical advice Status: Acute (12) Leukocytosis Status: Acute (13) Muscle strain Status: Acute (14) Neck muscle spasm Status: Acute (15) Pancreatitis Status: Acute (16) Prophylactic measure Status: Acute (17) Whiplash Status: Acute - Assessment and Plan (Free Text) Plan: WBC 19.6 BUN 25 Creatinine 2.4 Glucose 275 Tylenol Norvasc Dextrose Glucotrol GlucaGen diagnostic kit Heparin Dextrose Zosyn NovoLog Protonix Crestor Moderate to high complexity of care. Plan of care discussed with patient &/or family & staff. Medications reviewed and reconciled. Labs reviewed. Vitals reviewed.
[2018-09-24] MEDS: Piperacill/Tazo 2.25gm in Dex 2.25 GM/50 ML BAG IVPB SCH ×3 (03:20→18:36)
[2018-09-24] MEDS: (Novolog) Insulin Aspart, Recombinant 100 u/ml 10 ml vial SC SCH ×4 (08:09→21:39)
[2018-09-24] MEDS: Pantoprazole 40 mg EC Tab PO SCH (09:10)
--- NOTE | 2018-09-24 11:08 | CP.PCM.PN ---
Subjective - Date & Time of Evaluation Date of Evaluation: 09/24/18 - Subjective Subjective: no c/o vomiting, no diarrhea, no fever Objective - Vital Signs/Intake and Output Vital Signs (last 24 hours): Temp Pulse Resp BP Pulse Ox 99.7 F H 96 H 20 134/84 96 09/24/18 08:20 09/24/18 08:20 09/24/18 08:20 09/24/18 08:20 09/24/18 08:20 Intake and Output: 09/24/18 09/24/18 06:59 18:59 Intake Total 1200 Balance 1200 - Medications Medications: Current Medications Acetaminophen (Tylenol 325mg Tab) 650 mg PO Q6 PRN PRN Reason: Fever >100.4 F Last Admin: 09/22/18 23:33 Dose: 650 mg Amlodipine Besylate (Norvasc) 10 mg PO DAILY [facility] Last Admin: 09/24/18 09:10 Dose: 10 mg Dextrose (Dextrose 50% Inj) 0 ml IV STAT PRN; Protocol PRN Reason: Hypoglycemia Protocol Dextrose (Glutose 15) 0 gm PO ONCE PRN; Protocol PRN Reason: Hypoglycemia Protocol Glipizide (Glucotrol) 10 mg PO ACB [facility] Last Admin: 09/24/18 08:09 Dose: 10 mg Glucagon (Glucagen Diagnostic Kit) 0 mg IM STAT PRN; Protocol PRN Reason: Hypoglycemia Protocol Heparin Sodium (Porcine) (Heparin) 5,000 units SC Q12 [facility] Last Admin: 09/24/18 09:10 Dose: 5,000 units Dextrose (Dextrose 5% In Water 1000 Ml) 1,000 mls @ 0 mls/hr IV .Q0M PRN; Protocol PRN Reason: Hypoglycemia Protocol Piperacillin Sod/Tazobactam Sod (Zosyn 2.25 Gm Iv Premix) 2.25 gm in 50 mls @ 100 mls/hr IVPB Q8H [facility]; Protocol Last Admin: 09/24/18 03:20 Dose: 100 mls/hr Sodium Chloride (Sodium Chloride 0.9%) 1,000 mls @ 100 mls/hr IV .Q10H [facility] Last Admin: 09/23/18 04:38 Dose: 100 mls/hr Insulin Aspart (Novolog) 0 unit SC ACHS [facility]; Protocol Last Admin: 09/24/18 08:09 Dose: 2 units Pantoprazole Sodium (Protonix Ec Tab) 40 mg PO DAILY [facility] Last Admin: 09/24/18 09:10 Dose: 40 mg Rosuvastatin Calcium (Crestor) 10 mg PO HS [facility] Last Admin: 09/23/18 21:36 Dose: 10 mg - Labs Labs: 09/21/18 20:40 09/23/18 11:19 Assessment and Plan (1) Abdominal pain Status: Acute (2) Cystitis Status: Acute (3) Enteritis Status: Acute (4) Prostatitis Status: Acute (5) Renal insufficiency Status: Acute (6) Abdominal discomfort Status: Acute (7) Diabetes Status: Acute (8) Foot pain Status: Acute (9) Hypertension Status: Acute (10) Knee sprain and strain Status: Acute (11) Left against medical advice Status: Acute (12) Leukocytosis Status: Acute (13) Muscle strain Status: Acute (14) Neck muscle spasm Status: Acute (15) Pancreatitis Status: Acute (16) Prophylactic measure Status: Acute (17) Whiplash Status: Acute - Assessment and Plan (Free Text) Plan: WBC 19.6 BUN 25 Creatinine 2.4 Glucose 275 Tylenol Norvasc Dextrose Glucotrol GlucaGen diagnostic kit Heparin Dextrose Zosyn NovoLog Protonix Crestor Moderate to high complexity of care. Plan of care discussed with patient &/or fa christine & staff. Medications reviewed and reconciled. Labs reviewed. Vitals reviewed.
[2018-09-24] MEDS: Sodium Chloride 0.9% 1,000 ML IV SCH ×2 (13:02→21:40)
[2018-09-25] MEDS: Sodium Chloride 0.9% 1,000 ML IV SCH ×2 (02:01→06:45)
[2018-09-25] MEDS: Piperacill/Tazo 2.25gm in Dex 2.25 GM/50 ML BAG IVPB SCH ×2 (02:35→11:13)
[2018-09-25 06:55] LABS: BASO # 0.1 K/uL (0.0-0.2); BASO % 0.9 % (0.0-2.0); EOS # 0.2 K/uL (0.0-0.7); EOS % 3.3 % (0.0-4.0); HEMOGLOBIN 13.3 g/dL (12.0-18.0); LYMPH # 2.2 K/uL (1.0-4.3); LYMPH % 29.1 % (20.0-40.0); MEAN CELL VOLUME 89.3 fL (80.0-94.0); MEAN CORPUSCULAR HEMOGLOBIN 30.2 pg (27.0-31.0); MEAN CORPUSCULAR HGB CONC 33.9 g/dL (33.0-37.0); MEAN PLATELET VOLUME 9.5 fL (7.2-11.7); MONO # 0.7 K/uL (0.0-0.8); MONO % 8.6 % (0.0-10.0); NEUT # 4.4 K/uL (1.8-7.0); NEUT % 58.1 % (50.0-75.0); RBC 4.4 Mil/uL (4.40-5.90); RED CELL DISTRIBUTION WIDTH 13.6 % (11.5-14.5); WHITE BLOOD COUNT 7.6 K/uL (4.8-10.8)
[2018-09-25 07:08] LABS: ALB/GLOB RATIO 1.1 (1.0-2.1); ALBUMIN 3.7 g/dL (3.5-5.0); CALCIUM 8.7 mg/dl (8.6-10.4)
[2018-09-25] MEDS: (Novolog) Insulin Aspart, Recombinant 100 u/ml 10 ml vial SC SCH ×2 (08:18→11:58)
[2018-09-25] MEDS: Pantoprazole 40 mg EC Tab PO SCH (11:12)
[2018-09-25 16:22] VITALS: BP 134/88; PULSE 84; TEMP 98.2; O2SAT 98
--- NOTE | 2018-09-25 17:19 | CP.PCM.PN ---
Subjective - Date & Time of Evaluation Date of Evaluation: 09/25/18 Time of Evaluation: 17:19 - Subjective Subjective: alert and oriented x3, no sob or chest pains or distress. Objective - Vital Signs/Intake and Output Vital Signs (last 24 hours): Temp Pulse Resp BP Pulse Ox 98.2 F 84 20 134/88 98 09/25/18 16:00 09/25/18 16:00 09/25/18 16:00 09/25/18 16:00 09/25/18 16:00 Intake and Output: 09/25/18 09/25/18 06:59 18:59 Intake Total 650 950 Balance 650 950 - Medications Medications: Current Medications Acetaminophen (Tylenol 325mg Tab) 650 mg PO Q6 PRN PRN Reason: Fever >100.4 F Last Admin: 09/22/18 23:33 Dose: 650 mg Amlodipine Besylate (Norvasc) 10 mg PO DAILY [facility] Last Admin: 09/25/18 11:12 Dose: 10 mg Dextrose (Dextrose 50% Inj) 0 ml IV STAT PRN; Protocol PRN Reason: Hypoglycemia Protocol Dextrose (Glutose 15) 0 gm PO ONCE PRN; Protocol PRN Reason: Hypoglycemia Protocol Glipizide (Glucotrol) 10 mg PO ACB [facility] Last Admin: 09/25/18 08:17 Dose: 10 mg Glucagon (Glucagen Diagnostic Kit) 0 mg IM STAT PRN; Protocol PRN Reason: Hypoglycemia Protocol Piperacillin Sod/Tazobactam Sod (Zosyn 2.25 Gm Iv Premix) 2.25 gm in 50 mls @ 100 mls/hr IVPB Q8H [facility]; Protocol Last Admin: 09/25/18 11:13 Dose: 100 mls/hr Insulin Aspart (Novolog) 0 unit SC ACHS [facility]; Protocol Last Admin: 09/25/18 11:58 Dose: 3 units Pantoprazole Sodium (Protonix Ec Tab) 40 mg PO DAILY [facility] Last Admin: 09/25/18 11:12 Dose: 40 mg Rosuvastatin Calcium (Crestor) 10 mg PO HS [facility] Last Admin: 09/24/18 21:39 Dose: 10 mg - Labs Labs: 09/25/18 06:45 09/25/18 06:45 Assessment and Plan - Assessment and Plan (Free Text) Assessment: Patient seen and examined, admitted with abdominal pain. Alert and orientedx3, denies abdominal pain or distress, tolerating diet. Discussed with DR Nicole Zaldivar, plan to discharge home today, advised to follow up with PMD in 1 week. Advised to increase diet and exercise for uncontrolled diabetes. Keflex 500mg po bid given x 3 days.
--- NOTE | 2018-09-25 22:51 | CP.PCM.DIS ---
Provider - Provider Date of Admission: 09/23/18 08:27 Attending physician: Nico Zaldivar MD Consults: 09/23/18 08:29 Infectious Disease Consult Routine Comment: Consulting Provider: Esperanza Davila Consulting Physician: Esperanza Davila Reason for Consult: fever Time Spent in preparation of Discharge (in minutes): 25 Diagnosis - Discharge Diagnosis (1) Abdominal pain Status: Acute (2) Cystitis Status: Acute (3) Enteritis Status: Acute (4) Prostatitis Status: Acute (5) Renal insufficiency Status: Acute (6) Abdominal discomfort Status: Acute (7) Diabetes Status: Acute (8) Foot pain Status: Acute (9) Hypertension Status: Acute (10) Knee sprain and strain Status: Acute (11) Left against medical advice Status: Acute (12) Leukocytosis Status: Acute (13) Muscle strain Status: Acute (14) Neck muscle spasm Status: Acute (15) Pancreatitis Status: Acute (16) Prophylactic measure Status: Acute (17) Whiplash Status: Acute Hospital Course - Lab Results Lab Results: Micro Results 09/22/18 09:46 Blood Blood Culture - Preliminary NO GROWTH AFTER 3 DAYS 09/22/18 09:46 Blood Blood Culture - Preliminary NO GROWTH AFTER 3 DAYS 09/22/18 10:46 Urine,Clean Catch Urine Culture - Final No Growth (<1,000 CFU/ML) Most Recent Lab Values WBC 7.6 K/uL (4.8-10.8) D 09/25/18 06:45 RBC 4.40 Mil/uL (4.40-5.90) 09/25/18 06:45 Hgb 13.3 g/dL (12.0-18.0) 09/25/18 06:45 Hct 39.3 % (35.0-51.0) 09/25/18 06:45 MCV 89.3 fL (80.0-94.0) 09/25/18 06:45 MCH 30.2 pg (27.0-31.0) 09/25/18 06:45 MCHC 33.9 g/dL (33.0-37.0) 09/25/18 06:45 RDW 13.6 % (11.5-14.5) 09/25/18 06:45 Plt Count 158 K/uL (130-400) 09/25/18 06:45 MPV 9.5 fL (7.2-11.7) 09/25/18 06:45 Neut % (Auto) 58.1 % (50.0-75.0) 09/25/18 06:45 Lymph % (Auto) 29.1 % (20.0-40.0) 09/25/18 06:45 [place] % (Auto) 8.6 % (0.0-10.0) 09/25/18 06:45 Eos % (Auto) 3.3 % (0.0-4.0) 09/25/18 06:45 Baso % (Auto) 0.9 % (0.0-2.0) 09/25/18 06:45 Neut # (Auto) 4.4 K/uL (1.8-7.0) 09/25/18 06:45 Lymph # (Auto) 2.2 K/uL (1.0-4.3) 09/25/18 06:45 [place] # (Auto) 0.7 K/uL (0.0-0.8) 09/25/18 06:45 Eos # (Auto) 0.2 K/uL (0.0-0.7) 09/25/18 06:45 Baso # (Auto) 0.1 K/uL (0.0-0.2) 09/25/18 06:45 pO2 32 mm/Hg (30-55) 09/21/18 20:41 VBG pH 7.31 (7.32-7.43) L 09/21/18 20:41 VBG pCO2 34 mmHg (40-60) L 09/21/18 20:41 VBG HCO3 17.4 mmol/L 09/21/18 20:41 VBG Total CO2 18.1 mmol/L (22-28) L 09/21/18 20:41 VBG O2 Sat (Calc) 60.9 % (40-65) 09/21/18 20:41 VBG Base Excess -8.2 mmol/L (0.0-2.0) L 09/21/18 20:41 VBG Potassium 2.6 mmol/L (3.6-5.2) L 09/21/18 20:41 Sodium 144.0 mmol/l (132-148) 09/21/18 20:41 Chloride 115.0 mmol/L (98-107) H 09/21/18 20:41 Glucose 146 mg/dl (75-110) H 09/21/18 20:41 Lactate 2.0 mmol/L (0.7-2.1) 09/21/18 20:41 Sodium 138 mmol/L (132-148) 09/25/18 06:45 Potassium 4.1 mmol/L (3.6-5.2) 09/25/18 06:45 Chloride 105 mmol/L (98-107) 09/25/18 06:45 Carbon Dioxide 22 mmol/L (22-30) 09/25/18 06:45 Anion Gap 16 (10-20) 09/25/18 06:45 BUN 17 mg/dL (9-20) 09/25/18 06:45 Creatinine 2.2 mg/dL (0.8-1.5) H 09/25/18 06:45 Est GFR ( Amer) 40 09/25/18 06:45 Est GFR (Non-Af Amer) 33 09/25/18 06:45 POC Glucose (mg/dL) 182 mg/dL (65-110) H 09/25/18 16:29 Random Glucose 174 mg/dL (75-110) H D 09/25/18 06:45 Hemoglobin A1c 9.3 % (4.2-6.5) H 09/22/18 03:01 Lactic Acid 1.0 mmol/L (0.7-2.1) 09/23/18 11:19 Calcium 8.7 mg/dl (8.6-10.4) 09/25/18 06:45 Total Bilirubin 0.4 mg/dL (0.2-1.3) 09/25/18 06:45 AST 46 U/L (17-59) 09/25/18 06:45 ALT 33 U/L (21-72) 09/25/18 06:45 Alkaline Phosphatase 71 U/L (38-126) 09/25/18 06:45 Total Protein 6.9 g/dL (6.3-8.3) 09/25/18 06:45 Albumin 3.7 g/dL (3.5-5.0) 09/25/18 06:45 Globulin 3.3 gm/dL (2.2-3.9) 09/25/18 06:45 Albumin/Globulin Ratio 1.1 (1.0-2.1) 09/25/18 06:45 Lipase 699 U/L (23-300) H 09/25/18 06:45 Venous Blood Potassium 2.6 mmol/L (3.6-5.2) L 09/21/18 20:41 Urine Color Yellow (YELLOW) 09/21/18 20:40 Urine Clarity Hazy (Clear) 09/21/18 20:40 Urine pH 6.0 (5.0-8.0) 09/21/18 20:40 Ur Specific [place] 1.012 (1.003-1.030) 09/21/18 20:40 Urine Protein 2+ mg/dL (NEGATIVE) H 09/21/18 20:40 Urine Glucose (UA) Normal mg/dL (Normal) 09/21/18 20:40 Urine Ketones Negative mg/dL (NEGATIVE) 09/21/18 20:40 Urine Blood 1+ (NEGATIVE) H 09/21/18 20:40 Urine Nitrate Negative (NEGATIVE) 09/21/18 20:40 Urine Bilirubin Negative (NEGATIVE) 09/21/18 20:40 Urine Urobilinogen 2.0 mg/dL (0.2-1.0) 09/21/18 20:40 Ur Leukocyte Esterase 2+ John/uL (Negative) H 09/21/18 20:40 Urine WBC (Auto) 57 /hpf (0-5) H 09/21/18 20:40 Urine RBC (Auto) 6 /hpf (0-3) H 09/21/18 20:40 Ur Squamous Epith Cells < 1 /hpf (0-5) 09/21/18 20:40 Urine Bacteria Few (<OCC) H 09/21/18 20:40 - Hospital Course Hospital Course: Patient to be discharged on Cipro and Flagyl Outpatient cleared by the GI 9 hemoglobin 13.3 WBC came back to 7.6 from 19 patient has no abdominal pain now tolerating the diet well no nausea no vomiting patient agrees to be discharged patient advised to come back for the follow-up within 48 hours at my office on redness in between 2-4 patient understood and discharged Tylenol po antibiotic Norvasc Glucotrol GlucaGen diagnostic kit Heparin Dextrose Zosyn NovoLog Protonix Crestor Moderate to high complexity of care. Plan of care discussed with patient &/or family & staff. Medications reviewed and reconciled. Labs reviewed. Vitals reviewed. Discharge Exam - Head Exam Head Exam: NORMAL INSPECTION Discharge Plan - Discharge Medications Prescriptions: Cephalexin [Keflex] 500 mg PO BID #6 capsule - Follow Up Plan Condition: GOOD Disposition: HOME/ ROUTINE Instructions: Acute Abdomen (Belly Pain), Adult (DC), Cephalexin, Urinary Tract Infection in Men (DC), Urinary Tract Infection in Men (GEN), Acute Abdominal Pain (DC), Acute Abdominal Pain (GEN) Referrals: Jose A Zaldivar MD [Staff Provider] -
== END 2018-09-25 19:04 | disposition home or self-care (01) | DRG 320 ==
LOC: C.ER 18:17 → C.3T 09-22 02:57 → OBSVTOIN 09-23 08:27
PROVIDERS: ADMIT Internal Medicine Nephrology; ATTEND Internal Medicine Nephrology
DX: N30.90 Cystitis, unspecified without hematuria (principal); E11.65 Type 2 diabetes mellitus with hyperglycemia; N28.9 Disorder of kidney and ureter, unspecified; K52.9 Noninfective gastroenteritis and colitis, unspecified; I10 Essential (primary) hypertension; N41.9 Inflammatory disease of prostate, unspecified; M06.9 Rheumatoid arthritis, unspecified; E66.9 Obesity, unspecified; Z68.39 Body mass index [BMI] 39.0-39.9, adult